=== PATIENT | female | born 1960 | race African-American/Black ===

== ENCOUNTER 2020-08-28 11:06 | Emergency (ER) | payer OTHER ==
[~2020-08-28] VITALS: Ht 162.6 cm; Wt 113.4 kg
[~2020-08-28 11:06] MED LIST: ATACAND4 MG PO; FLEXERIL PO; PREDNISONE 10 M10 MG PO; TOPROL XL200 MG; ULTRAM 50MG TAB50 MG PO; [UNRECOGNIZED DRUG - REMARK]
[2020-08-28 11:50] LABS: URINE BILIRUBIN NEGATIVE (Negative); URINE BLOOD NEGATIVE (Negative); URINE CLARITY CLEAR; URINE COLOR YELLOW; URINE GLUCOSE-RANDOM* NEGATIVE (Negative); URINE KETONES NEGATIVE (Negative); URINE LEUKOCYTES-REFLEX TRACE (Negative); URINE NITRITE-REFLEX NEGATIVE (Negative); URINE PROTEIN (DIPSTICK) NEGATIVE (Negative); URINE SPECIFIC GRAVITY >= 1.030 (1.005-1.035); URINE UROBILINOGEN 0.2 E.U./dl (0.2-1.0)
[2020-08-28 12:10] LABS: ABSOLUTE NEUTROPHILS 2.1 thou/uL (1.4-8.2); EOSINOPHILS 4.7 % (0.0-3.0); HEMOGLOBIN 13.7 gm/dL (12.0-15.0); LYMPHOCYTES 40.2 % (24.0-44.0); MCH 32.4 pg (26.0-34.0); MCHC 32.5 g/dL (28.0-37.0); MCV 99.5 fL (80.0-100.0); MONOCYTES 8.7 % (1.0-8.0); PLATELET COUNT 216 thou/uL (150-400); POLYS 45.4 % (36.0-66.0); RBC 4.22 mil/uL (4.20-5.00); RDW 14.4 % (10.5-14.5); WBC 4.6 thou/uL (4.0-11.0)
[2020-08-28 12:23] LABS: ANION GAP 12 mmol/L (7-16); BUN 20 mg/dL (7-18); CALCIUM 9.5 mg/dL (8.5-10.1); CHLORIDE 104 mmol/L (98-107); CO2 26 mmol/L (21-32); CREATININE 1.2 mg/dL (0.6-1.0); GLUCOSE 103 mg/dL (74-106); POTASSIUM 3.8 mmol/L (3.5-5.1); SODIUM 142 mmol/L (136-145)
[2020-08-28 12:27] LABS: ALBUMIN 3.7 g/dL (3.4-5.0); DIRECT BILIRUBIN < 0.1 mg/dL (<0.1-0.2); LIPASE 85 U/L (73-393); SGOT 56 U/L (15-37); SGPT 78 U/L (14-59); TOTAL BILIRUBIN 0.4 mg/dL (0.2-1.0); TOTAL PROTEIN 7.7 g/dL (6.4-8.2)
[2020-08-28] MEDS ORDERED: METHOTREXATE 22.5 M1 PO (13:58)
[2020-08-28 14:47] VITALS: BP 143/73
== END 2020-08-28 14:51 | disposition home or self-care (01) ==
LOC: ER 11:06
PROVIDERS: Nurse Practitioner
DX: R10.84 Generalized abdominal pain (principal); M25.551 Pain in right hip; Z79.899 Other long term (current) drug therapy; Z88.2 Allergy status to sulfonamides; Z88.1 Allergy status to other antibiotic agents

== ENCOUNTER 2020-12-08 07:32 | Emergency (ER) | payer OTHER ==
[~2020-12-08] VITALS: Ht 162.6 cm; Wt 124.0 kg
[~2020-12-08 07:32] MED LIST changes: +METHOTREXATE 22.5 M1 PO
[2020-12-08] MEDS ORDERED: SYMBICORT160 MCG/4. INH (07:58)
[2020-12-08] MEDS ORDERED: PROAIR HFA8.5 GM INH (07:58)
[2020-12-08] MEDS ORDERED: FOLIC ACID1 MG PO (07:58)
[2020-12-08 08:43] LABS: ABSOLUTE NEUTROPHILS 1.7 thou/uL (1.4-8.2); BASOPHILS 0.9 % (0.0-2.0); EOSINOPHILS 3.1 % (0.0-3.0); HEMATOCRIT 40.1 % (37.0-47.0); HEMOGLOBIN 13.6 gm/dL (12.0-15.0); LYMPHOCYTES 40.3 % (24.0-44.0); MCH 33.7 pg (26.0-34.0); MCHC 33.9 g/dL (28.0-37.0); MCV 99.3 fL (80.0-100.0); MONOCYTES 13.4 % (1.0-8.0); PLATELET COUNT 201 thou/uL (150-400); POLYS 42.3 % (36.0-66.0); RBC 4.04 mil/uL (4.20-5.00); RDW 14.4 % (10.5-14.5)
[2020-12-08 08:47] LABS: ANION GAP 5 mmol/L (7-16); BUN 25 mg/dL (7-18); CALCIUM 9.2 mg/dL (8.5-10.1); CHLORIDE 106 mmol/L (98-107); CO2 29 mmol/L (21-32); CREATININE 1.2 mg/dL (0.6-1.0); GLUCOSE 90 mg/dL (74-106); POTASSIUM 4.1 mmol/L (3.5-5.1); SODIUM 140 mmol/L (136-145)
[2020-12-08 08:58] LABS: ALBUMIN 3.3 g/dL (3.4-5.0); AMYLASE 133 U/L (25-115); DIRECT BILIRUBIN 0.1 mg/dL (<0.1-0.2); LIPASE 97 U/L (73-393); MAGNESIUM 2.1 mg/dL (1.8-2.4); PHOSPHORUS 3.5 mg/dL (2.6-4.7); SGOT 14 U/L (15-37); SGPT 24 U/L (14-59); TOTAL BILIRUBIN 0.4 mg/dL (0.2-1.0); TOTAL PROTEIN 7.6 g/dL (6.4-8.2); TROPONIN-I <0.06 ng/mL (<0.06)
[2020-12-08 10:27] LABS: URINE BILIRUBIN NEGATIVE (Negative); URINE BLOOD NEGATIVE (Negative); URINE CLARITY CLEAR; URINE COLOR YELLOW; URINE GLUCOSE-RANDOM* NEGATIVE (Negative); URINE KETONES NEGATIVE (Negative); URINE LEUKOCYTES-REFLEX NEGATIVE (Negative); URINE NITRITE-REFLEX NEGATIVE (Negative); URINE PROTEIN (DIPSTICK) NEGATIVE (Negative); URINE UROBILINOGEN 0.2 E.U./dl (0.2-1.0)
[2020-12-08 11:36] VITALS: BP 154/68
[2020-12-08] MEDS ORDERED: TYLENOL325 M1 PO (11:36)
[2020-12-08] MEDS ORDERED: COMPAZINE10 M2 PO (11:36)
--- NOTE | 2020-12-08 12:33 | EKG ---
[place] [address] [address] [facility] [place] [address] ELECTROCARDIOGRAM REPORT Name: ARSALAN TELLO Room #: 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
== END 2020-12-08 11:37 | disposition home or self-care (01) ==
LOC: ER 07:32
PROVIDERS: Emergency Medicine
DX: G44.209 Tension-type headache, unspecified, not intractable (principal); I11.0 Hypertensive heart disease with heart failure; I50.9 Heart failure, unspecified; D86.9 Sarcoidosis, unspecified; Z88.2 Allergy status to sulfonamides; Z88.1 Allergy status to other antibiotic agents; Z88.6 Allergy status to analgesic agent

== ENCOUNTER 2021-01-26 07:29 | Emergency (ER) | payer OTHER ==
[~2021-01-26] VITALS: Ht 162.6 cm; Wt 117.9 kg
[~2021-01-26 07:29] MED LIST changes: +COMPAZINE10 M2 PO; +FOLIC ACID1 MG PO; +PROAIR HFA8.5 GM INH; +SYMBICORT160 MCG/4. INH; +TYLENOL325 M1 PO
[2021-01-26 08:30] LABS: ABSOLUTE NEUTROPHILS 2.6 thou/uL (1.4-8.2); BASOPHILS 1.1 % (0.0-2.0); EOSINOPHILS 3.6 % (0.0-3.0); HEMATOCRIT 39.6 % (37.0-47.0); HEMOGLOBIN 13.3 gm/dL (12.0-15.0); LYMPHOCYTES 33.9 % (24.0-44.0); MCH 33.2 pg (26.0-34.0); MCHC 33.7 g/dL (28.0-37.0); MCV 98.7 fL (80.0-100.0); PLATELET COUNT 212 thou/uL (150-400); POLYS 51.4 % (36.0-66.0); RBC 4.01 mil/uL (4.20-5.00); WBC 5.6 thou/uL (4.0-11.0)
[2021-01-26 08:46] LABS: POTASSIUM 4.8 mmol/L (3.5-5.1)
[2021-01-26 08:50] LABS: ALBUMIN 3.4 g/dL (3.4-5.0); TOTAL BILIRUBIN 0.5 mg/dL (0.2-1.0); TOTAL PROTEIN 7.9 g/dL (6.4-8.2)
[2021-01-26 09:31] LABS: URINE BILIRUBIN NEGATIVE (Negative); URINE BLOOD TRACE (Negative); URINE CLARITY CLEAR; URINE COLOR YELLOW; URINE GLUCOSE-RANDOM* NEGATIVE (Negative); URINE KETONES NEGATIVE (Negative); URINE LEUKOCYTES-REFLEX NEGATIVE (Negative); URINE NITRITE-REFLEX NEGATIVE (Negative); URINE PROTEIN (DIPSTICK) NEGATIVE (Negative); URINE SPECIFIC GRAVITY 1.025 (1.005-1.035); URINE UROBILINOGEN 0.2 E.U./dl (0.2-1.0)
[2021-01-26] MEDS ORDERED: ZOFRAN ODT4 MG PO (10:40)
[2021-01-26] MEDS ORDERED: NEXIUM40 MG PO (10:41)
[2021-01-26 10:47] VITALS: BP 155/86
--- NOTE | 2021-01-26 10:55 | EKG ---
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 : 1960 Requested By: Anthony Rust Order Number: [id number] MD: Dc Brown Measurements Intervals [place] Rate: 82 P: 58 HI: 164 QRS: -2 QRSD: 85 T: 29 QT: 481 QTc: 562 Interpretive Statements Sinus rhythm Consider left ventricular hypertrophy Prolonged QT interval Compared to ECG 12/08/2020 07:37:14 Prolonged QT interval now present Electronically Signed On 01-26-2021 10:55:41 CDT by Dc Brown [email or web address] <ELECTRONICALLY SIGNED> By: Dc Brown MD, [facility] 01/26/21 1055 0831 0 Dc Brown MD, FACC /EPI
== END 2021-01-26 10:53 | disposition home or self-care (01) ==
LOC: ER 07:29
PROVIDERS: Emergency Medicine
DX: R10.84 Generalized abdominal pain (principal); R11.2 Nausea with vomiting, unspecified; I10 Essential (primary) hypertension; Z20.822 Contact with and (suspected) exposure to COVID-19; Z79.891 Long term (current) use of opiate analgesic; Z79.899 Other long term (current) drug therapy; Z88.6 Allergy status to analgesic agent; Z88.2 Allergy status to sulfonamides; Z88.8 Allergy status to other drugs, medicaments and biological substances

== ENCOUNTER 2021-03-30 08:49 | Emergency (ER) | payer OTHER ==
[~2021-03-30] VITALS: Ht 162.6 cm; Wt 122.5 kg
[~2021-03-30 08:49] MED LIST changes: +NEXIUM40 MG PO; +ZOFRAN ODT4 MG PO
[2021-03-30 09:40] LABS: ABSOLUTE NEUTROPHILS 1.3 thou/uL (1.4-8.2); BASOPHILS 0.8 % (0.0-2.0); EOSINOPHILS 1.9 % (0.0-3.0); HEMATOCRIT 39.8 % (37.0-47.0); HEMOGLOBIN 13.5 gm/dL (12.0-15.0); LYMPHOCYTES 38.9 % (24.0-44.0); MCH 33.5 pg (26.0-34.0); MCHC 33.9 g/dL (28.0-37.0); MCV 98.9 fL (80.0-100.0); MONOCYTES 13.3 % (1.0-8.0); PLATELET COUNT 206 thou/uL (150-400); POLYS 45.1 % (36.0-66.0); RBC 4.02 mil/uL (4.20-5.00)
[2021-03-30 09:48] LABS: URINE BILIRUBIN NEGATIVE (Negative); URINE BLOOD NEGATIVE (Negative); URINE CLARITY CLEAR; URINE COLOR YELLOW; URINE GLUCOSE-RANDOM* NEGATIVE (Negative); URINE KETONES NEGATIVE (Negative); URINE LEUKOCYTES-REFLEX NEGATIVE (Negative); URINE NITRITE-REFLEX NEGATIVE (Negative); URINE PROTEIN (DIPSTICK) NEGATIVE (Negative); URINE SPECIFIC GRAVITY >= 1.030 (1.005-1.035); URINE UROBILINOGEN 0.2 E.U./dl (0.2-1.0)
[2021-03-30] MEDS ORDERED: NAPROSYN500 MG PO (10:17)
[2021-03-30 11:30] VITALS: BP 140/68
== END 2021-03-30 11:30 | disposition home or self-care (01) ==
LOC: ER 08:49
PROVIDERS: Emergency Medicine
DX: R10.30 Lower abdominal pain, unspecified (principal); I10 Essential (primary) hypertension; Z88.2 Allergy status to sulfonamides; Z88.6 Allergy status to analgesic agent; Z88.1 Allergy status to other antibiotic agents; Z79.899 Other long term (current) drug therapy